=== PATIENT | male | born 1960 | race Caucasian/White ===

== ENCOUNTER 2017-10-31 17:59 | Emergency (ER) | payer OTHER ==
[~2017-10-31] VITALS: Ht 167.6 cm; Wt 81.2 kg
[~2017-10-31 17:59] MED LIST: FOSI20TA5 PO; HYDR50TA3 PO; OMEP40CA37 PO; SIMV10TA6 PO
[2017-10-31 18:01] VITALS: BP 118/57
[2017-10-31] MEDS ORDERED: IBUPROFEN 600 MG TABLET PO ONE ×2 (18:56→19:00)
[2017-10-31] MEDS ORDERED: TDAP [DIPH/PERTUSSIS/TET] 0.5 ML VIAL IM ONE ×2 (21:00→21:08)
--- NOTE | 2017-10-31 21:32 | NUR ---
PT LEFT BEFORE REC'ING DISK. PT REFUSED SPLINT. Cesar PAL, AGACNP- AWARE. Patient discharged to home in stable condition. Written and verbal after care instructions given. Patient verbalizes understanding of instruction. PT AMBULATED OUT WITH A STEADY GAIT. PT HAS FINDINGS AND WILL F/U WITH ORTHO.
== END 2017-10-31 21:33 | disposition home or self-care (01) ==
LOC: ER 18:07
DX: S82.152A Displaced fracture of left tibial tuberosity, initial encounter for closed fracture (principal); M70.52 Other bursitis of knee, left knee; L03.116 Cellulitis of left lower limb; E78.00 Pure hypercholesterolemia, unspecified; F17.200 Nicotine dependence, unspecified, uncomplicated; W18.39XA Other fall on same level, initial encounter; Y93.89 Activity, other specified; Y92.89 Other specified places as the place of occurrence of the external cause; Y99.8 Other external cause status
CPT/HCPCS: 73564-TC; 90715; 93971-TC; A4606; Z7610

== ENCOUNTER 2018-03-09 16:19 | Emergency (ER) | payer OTHER ==
[~2018-03-09] VITALS: Ht 167.6 cm; Wt 79.4 kg
[~2018-03-09 16:19] MED LIST changes: +FOSI20TA3 PO; -FOSI20TA5 PO
--- NOTE | 2018-03-09 17:20 | NUR ---
PT AMBULATORY TO ER BED 10 C/O RUE PAIN SINCE YESTERDAY. PT DENIES ANY RECENT TRAUMA. AFFECTED EXTREMITY APPEARS RED AND SWOLLEN. 10/10 PAIN. DENIES ANY OTHER COMPLAINT AT THIS TIME. AWAITING MD BRADSHAW.
--- NOTE | 2018-03-09 17:23 | NUR ---
HOA VICE PRESIDENT BIOSTATISTICS AT BEDSIDE FOR EVAL.
[2018-03-09] MEDS ORDERED: ONDANSETRON HCL/PF 4 MG/2 ML VIAL IV ONE (17:30)
[2018-03-09] MEDS ORDERED: HYDROMORPHONE 1 MG/1 ML DISP.SYRIN IV ONE (17:30)
[2018-03-09] MEDS ORDERED: ONDANSETRON HCL/PF 4 MG/2 ML VIAL ONE (17:41)
[2018-03-09] MEDS ORDERED: HYDROMORPHONE 1 MG/1 ML DISP.SYRIN ONE (17:41)
[2018-03-09 17:42] LABS: BASOPHILS # (AUTO) 0.1 /CMM (0.0-0.2); BASOPHILS % (AUTO) 1.2 % (0.0-2.0); EOSINOPHILS % (AUTO) 0.6 % (0.0-6.0); HEMATOCRIT 42 % (39-51); HEMOGLOBIN 13.5 g/dL (13.5-17.5); LYMPHOCYTES # (AUTO) 1.1 /CMM (0.8-4.8); LYMPHOCYTES % (AUTO) 12.1 % (20.0-44.0); MEAN CORPUSCULAR HEMOGLOBIN 26 PG (26.0-33.0); MEAN CORPUSCULAR HGB CONC 33 g/dl (31.0-36.0); MEAN CORPUSCULAR VOLUME 78 fL (80-96); MONOCYTES # (AUTO) 0.9 /CMM (0.1-1.30); MONOCYTES % (AUTO) 9.5 % (2.0-12.0); NEUTROPHILS # (AUTO) 7.3 /CMM (1.8-8.9); NEUTROPHILS % (AUTO) 76.6 % (43.0-81.0); PLATELET COUNT (AUTO) 302 /CMM (150-450); RDW COEFFICIENT OF VARIATION 15.3 (11.5-15.0); WHITE BLOOD COUNT (AUTO) 9.5 K/uL (4.3-11.0)
[2018-03-09 17:52] LABS: CALCIUM, SERUM 8.7 mg/dL (8.5-10.1); POTASSIUM 3.9 mmol/L (3.5-5.1)
[2018-03-09 18:20] LABS: C-REACTIVE PROTEIN 6.1 mg/dL (0.0-0.9)
[2018-03-09] MEDS ORDERED: KETOROLAC TROMETHAMINE INJ 30 MG/ML VIAL ONE (18:56)
[2018-03-09] MEDS ORDERED: KETOROLAC TROMETHAMINE INJ 30 MG/ML VIAL IV ONE (19:00)
--- NOTE | 2018-03-09 19:02 | NUR ---
REPORT TO RICHMOND SHEPHERD FOR NESS.
--- NOTE | 2018-03-09 19:18 | NUR ---
PT AA/OX4. VSS. NAD. STABLE CONDITION. SITTING UP TALKING ON CELL PHONE. WILL CONTINUE TO MONITOR.
--- NOTE | 2018-03-09 19:30 | NUR ---
CONNECTED DR KELLER TO HOA ÁLVAREZRAS CLIENT SERVICES DIRECTOR FOR ORTHO CONSULT
--- NOTE | 2018-03-09 19:59 | NUR ---
Note undone in EDM - 03/09/18 at 2000 by SHAE Patient does not wish to proceed with medical care recommended by ( ). Patient given information related to possible complications, up to and including , which could occur as a result of leaving the hospital at this time. Patient verbalizes understanding of risks involved due to leaving against medical advice. Patient has signed AMA form. Patient discharged to home in stable condition. Written and verbal after care instructions given. Patient verbalizes understanding of instruction. IV removed. Catheter intact and site benign. Pressure and 4x4 applied to site. No bleeding noted. AMBULATED WITH STABLE GAIT. INSTRUCTED NOT TO OPERATE OR DRIVE HEAVY MACHINERY
--- NOTE | 2018-03-09 20:00 | NUR ---
Patient does not wish to proceed with medical care recommended by SELVIN PAL. Patient given information related to possible complications, up to and including , which could occur as a result of leaving the hospital at this time. Patient verbalizes understanding of risks involved due to leaving against medical advice. Patient has signed AMA form. Patient discharged to home in stable condition. Written and verbal after care instructions given. Patient verbalizes understanding of instruction. IV removed. Catheter intact and site benign. Pressure and 4x4 applied to site. No bleeding noted. AMBULATED WITH STABLE GAIT. INSTRUCTED NOT TO OPERATE OR DRIVE HEAVY MACHINERY
[2018-03-09 20:01] VITALS: BP 152/72
== END 2018-03-09 20:02 | disposition left against medical advice (07) ==
LOC: ER 16:19
DX: M79.641 Pain in right hand (principal); M10.9 Gout, unspecified; I10 Essential (primary) hypertension; E78.00 Pure hypercholesterolemia, unspecified; F17.200 Nicotine dependence, unspecified, uncomplicated
CPT/HCPCS: 29105; 36415; 73130; 80048; 84550; 85025; 85652; 86140; 96374; 96375; 99285; 99406; A4606; J1170; J1885; J2405; Z7610

== ENCOUNTER 2018-06-22 11:47 | Inpatient (IN) | payer OTHER ==
[~2018-06-22] VITALS: Ht 167.6 cm; Wt 76.7 kg
[~2018-06-22 11:47] MED LIST changes: +FOSI20TA PO; -FOSI20TA3 PO
--- NOTE | 2018-06-22 12:05 | NUR ---
R KNEE PAIN AND SWELLING X 3 DAYS S/P SELF ARTHROCENTESIS. PT AAOX4, VSS. DENIES ANY OTHER DISCOMFORT @ THIS TIME. PT SEEN & EVAL'D BY KRISTIE AVELAR. WILL CONT TO MONITOR.
[2018-06-22] MEDS ORDERED: TETRACAINE/BENZOCAINE/BUTAMBEN 56 GM SPRAY TP ONE (12:30)
[2018-06-22] MEDS ORDERED: IV NS 0.9% 1,000 ML BAG IV ONE (13:00)
[2018-06-22] MEDS ORDERED: VANCOMYCIN 1 GM in IV D5W 250 ML IV ONE (13:00)
--- NOTE | 2018-06-22 13:33 | NUR ---
LT KNEE ABSCESS DRAINED BY KRISTIE AVELAR. PT JIE WELL.
[2018-06-22 13:36] LABS: BASOPHILS # (AUTO) 0.1 /CMM (0.0-0.2); BASOPHILS % (AUTO) 0.7 % (0.0-2.0); EOSINOPHILS % (AUTO) 0.5 % (0.0-6.0); HEMATOCRIT 42 % (39-51); HEMOGLOBIN 13.7 g/dL (13.5-17.5); LYMPHOCYTES # (AUTO) 1.5 /CMM (0.8-4.8); LYMPHOCYTES % (AUTO) 13.2 % (20.0-44.0); MEAN CORPUSCULAR HGB CONC 33 g/dl (31.0-36.0); MEAN CORPUSCULAR VOLUME 81 fL (80-96); MONOCYTES # (AUTO) 1.2 /CMM (0.1-1.30); MONOCYTES % (AUTO) 10.4 % (2.0-12.0); NEUTROPHILS # (AUTO) 8.5 /CMM (1.8-8.9); NEUTROPHILS % (AUTO) 75.2 % (43.0-81.0); PLATELET COUNT (AUTO) 312 /CMM (150-450); RED BLOOD CELL COUNT(AUTO) 5.14 MIL/uL (4.5-6.0); WHITE BLOOD COUNT (AUTO) 11.3 K/uL (4.3-11.0)
[2018-06-22 13:48] LABS: ALANINE AMINOTRANSFERASE 17 U/L (12-78); ALBUMIN 3.6 g/dL (3.4-5.0); ALKALINE PHOSPHATASE 94 U/L (46-116); ASPARTATE AMINOTRANSFERASE 11 U/L (15-37); BILIRUBIN,DIRECT 0.1 mg/dL (0.0-0.2); BILIRUBIN,TOTAL 0.3 mg/dL (0.2-1.0); CALCIUM, SERUM 8.7 mg/dL (8.5-10.1); CARBON DIOXIDE 28 mmol/L (21-32); CHLORIDE 97 mmol/L (98-107); CREATININE 1.2 mg/dL (0.6-1.3); GLUCOSE 105 mg/dL (74-106); POTASSIUM 4.1 mmol/L (3.5-5.1); SODIUM SERUM 134 mmol/L (136-145); TOTAL PROTEIN, SERUM 7.8 g/dL (6.4-8.2); UREA NITROGEN, BLOOD 11 mg/dL (7-18)
[2018-06-22 15:50] VITALS: BP 126/72
--- NOTE | 2018-06-22 15:51 | NUR ---
REPORT GIVEN TO JERALD SHEPHERD. PT TRANSFERED TO FLOOR. STABLE CONDITION.
--- NOTE | 2018-06-22 15:55 | NUR ---
MS ROTARY PUMP OPERATOR NOTE RECEIVED PT FROM ER VIA WHEELCHAIR. PT IS ALERT AND ORIENTED X4. DENIES N/V, CHEST PAIN, SOB. BREATHING IS EVEN AND UNLABORED ON ROOM AIR. VS WNL. PT RATES PAIN 5/10 IN THE BILATERAL KNEES. R AC #20G IV IS PATENT, CLEAN, DRY AND INTACT. ALL BELONGINGS ACCOUNTED FOR AND BELONGINGS LIST LIST SIGNED AND PLACED IN CHART. PT HAS CIGARETTES AND CUSTOMER LOGISTICS MANAGER, ALLOWED NURSE TO TAKE BOTH AND PLACE AT THE NURSING STATION. WOUND DOCUMENTATION COMPLETED PER PROTOCOL. HOME MEDICATION RECONCILED. AWAITING ADMISSION ORDERS FROM DR. MATOS. PT IS REQUESTING WATER AND TO GO OUTSIDE AND SMOKE. PT STATED "IT IS VERY IMPORTANT THAT I CAN, I SMOKE 3 PACKS A DAY I NEED TO SMOKE I ALMOST LEFT IN THE ER BECAUSE I COULDN'T SMOKE". THE NURSE INFORMED THE PT THAT THEY WILL LET THE DOCTOR KNOW, BUT FOR NOW THE PT CANNOT GO OUTSIDE TO SMOKE. PT VERBALIZED AGREEMENT.
[2018-06-22 16:30] VITALS: BP 126/72
[2018-06-22] MEDS ORDERED: Z GUARD REMEDY 2 OZ OINT TP PRN (17:00)
[2018-06-22] MEDS ORDERED: ONDANSETRON HCL/PF 4 MG/2 ML VIAL IVP PRN (17:00)
[2018-06-22] MEDS ORDERED: MAG HYDROX/AL HYDROX/SIMETH 30 ML UDC PO PRN (17:00)
[2018-06-22] MEDS ORDERED: ACETAMINOPHEN 325 MG TABLET PO PRN (17:00)
[2018-06-22] MEDS ORDERED: MAGNESIUM HYDROXIDE 30 ML UDC PO PRN (17:00)
--- NOTE | 2018-06-22 17:30 | NUR ---
MS RN SMOKE BREAK PT WENT OUTSIDE WITH MILLER HEAD FOR SMOKE BREAK AND BROUGHT BACK TO ROOM IN STABLE CONDITION. ALL NEEDS ATTENDED TO, WILL CONTINUE TO MONITOR.
[2018-06-22] MEDS ORDERED: FEE PK DOSING 1 MIN EA MC ONE (17:31)
--- NOTE | 2018-06-22 18:40 | NUR ---
MS RN NICOTINE PATCH PT REQUESTING NICOTINE PATCH IN ADDITION TO SMOKE BREAKS. PER PT "I AM HIGHLY ADDICTED TO SMOKING AND GET REALLY ANXIOUS". RECEIVED ORDERS FROM DR. MATOS, WILL IMPLEMENT ORDERS.
--- NOTE | 2018-06-22 19:03 | NUR ---
MS RN CLOSING NOTE PT IN BED, ALERT AND ORIENTED X4. DENIES N/V, CHEST PAIN, SOB. BREATHING IS EVEN AND UNLABORED ON ROOM AIR. R AC #20G IV IS SALINE LOCKED WITHOUT REDNESS OR SWELLING. ALL NEEDS ATTENDED TO. BED IS LOCKED AND IN LOWEST POSITION, SIDE RAILS UP X2, CALL LIGHT WITHIN REACH. WILL ENDORSE TO AIR BREAKER OPERATOR RN FOR CONTINUITY OF CARE.
[2018-06-22] MEDS: PIPERACILLIN /TAZOBACTAM 3.375 G in IV D5W 100 ML IV SCH (19:47)
[2018-06-22] MEDS: NICOTINE PATCH (21MG) 21 MG PATCH.TD24 TD SCH (19:47)
[2018-06-22 20:05] VITALS: BP 108/59
[2018-06-22 20:33] VITALS: BP 108/59
--- NOTE | 2018-06-22 20:54 | NUR ---
ALERT AND ORIENTATED. SMILING AND IN GOOD SPIRITS. RIGHT KNEE DEEP PINK IN COLOR AND WARM TO TOUCH SWOLLEN NOTED AMBULATES TO THE BATHROOM NO INDICATION OF PAIN
[2018-06-22] MEDS: ZOLPIDEM TARTRATE 5 MG TABLET PO PRN (22:55)
--- NOTE | 2018-06-23 00:49 | NUR ---
ENDING NOTES: AMBIEN GIVEN AND EFFECTIVE. DENIES PAIN SEEN AMBULATING TO ANF FRO THE BATHRROM NO INDICATION OF KNEE DISCOFORT. HE IS PLEASENT AND COOPERATIVE
--- NOTE | 2018-06-23 01:00 | NUR ---
RN NOTES RECEIVED PT ASLEEP, ON ROOM AIR AND TOLERATED WELL. NO SIGNS OF DISTRESS AND DISCOMFORT NOTED.IV ACCESS LEFT AC PATENT AND INTACT. KEPT COMFORTABLE AND ATTENDED. WILL CONTINUE TO MONITOR PATIENT.
[2018-06-23] MEDS: VANCOMYCIN 1 GM in IV D5W 250 ML IV SCH ×2 (02:14→14:25)
[2018-06-23 04:00] VITALS: BP 112/69
[2018-06-23] MEDS: PIPERACILLIN /TAZOBACTAM 3.375 G in IV D5W 100 ML IV SCH ×3 (04:36→23:00)
--- NOTE | 2018-06-23 06:46 | NUR ---
RN NOTES PATIENT SLEPT WELL OVERNIGHT, VITAL SIGNS STABLE, AFEBRILE. DENIES PAIN, NAUSEA AND VOMITING. NO SIGNS OF DISTRESS AND DISCOMFORT NOTED. ALL DUE MEDS GIVEN. ALL NEEDS MET. WILL CONTINUE TO MONITOR.
--- NOTE | 2018-06-23 07:15 | NUR ---
RN OPENING NOTES RECEIVED PATIENT IN BED RESTING. A/OX4, ABLE TO MAKE NEEDS KNOWN. NO ACUTE DISTRESS, NO SOB. DENIED PAIN OR DISCOMFORT AT THE MOMENT. IV ACCESS INTACT AND PATENT. KEPT PATIENT SAFE AND COMFORTABLE. DISCUSSED POC. BED IN LOW/LOCKED POSITION, SIDERAILS UP X2, CALL LIGHT IN REACH. WILL CONTINUE TO MONIOTR ACCORDINGLY.
[2018-06-23 07:27] LABS: BASOPHILS # (AUTO) 0.1 /CMM (0.0-0.2); BASOPHILS % (AUTO) 0.6 % (0.0-2.0); EOSINOPHILS % (AUTO) 0.8 % (0.0-6.0); HEMATOCRIT 39 % (39-51); HEMOGLOBIN 12.7 g/dL (13.5-17.5); LYMPHOCYTES # (AUTO) 0.9 /CMM (0.8-4.8); LYMPHOCYTES % (AUTO) 10.2 % (20.0-44.0); MEAN CORPUSCULAR HGB CONC 33 g/dl (31.0-36.0); MEAN CORPUSCULAR VOLUME 80 fL (80-96); MONOCYTES # (AUTO) 0.9 /CMM (0.1-1.30); MONOCYTES % (AUTO) 10.5 % (2.0-12.0); NEUTROPHILS # (AUTO) 6.6 /CMM (1.8-8.9); NEUTROPHILS % (AUTO) 77.9 % (43.0-81.0); PLATELET COUNT (AUTO) 269 /CMM (150-450); RED BLOOD CELL COUNT(AUTO) 4.84 MIL/uL (4.5-6.0); WHITE BLOOD COUNT (AUTO) 8.4 K/uL (4.3-11.0)
[2018-06-23 07:40] LABS: CALCIUM, SERUM 7.4 mg/dL (8.5-10.1); CREATININE 1.1 mg/dL (0.6-1.3); MAGNESIUM 1.7 mg/dL (1.8-2.4); POTASSIUM 3.9 mmol/L (3.5-5.1)
[2018-06-23 08:00] VITALS: BP 111/69
[2018-06-23] MEDS: NICOTINE PATCH (21MG) 21 MG PATCH.TD24 TD SCH (08:15)
[2018-06-23] MEDS: Magnesium 1GM/D5W 100ML PREMIX 100 ML IV SCH ×2 (11:45→12:47)
--- NOTE | 2018-06-23 14:15 | NUR ---
NOTIFIED MEDRECON TO DR MATOS.
[2018-06-23 16:00] VITALS: BP 129/78
--- NOTE | 2018-06-23 18:00 | NUR ---
IV ACCESS LEFT AC NOT PATENT, REMOVED APPLIED PRESSURE, NO BLEEDING. INSERTED NEW IV ACCESS ON LEFT FOREARM GAUGE 22, INTACT AND PATENT.
--- NOTE | 2018-06-23 18:15 | NUR ---
Met with patient, he lives at home with spouse. States he is ambulatory and independent with adl's. Has no DME and homehealth reported. He plan to return home once discharge. Addendum: 06/23/18 at 1815 by RANDY BURNHAM RN Amended: Links added.
[2018-06-23] MEDS: LACTOBACILLUS RHAMNOSUS GG 1 EACH CAP.SPRINK PO SCH (18:40)
--- NOTE | 2018-06-23 19:31 | NUR ---
RN CLOSING NOTES PATIENT IN STABLE CONDITION. ALL NEEDS ATTENDED AND PROVIDED. ALL DUE MEDICATIONS ADMINISTERED ORDERED. KEPT PATIENT SAFE AND COMFORTABLE. BED IN LOW/LOCKED POSITION, SIDERAILS UPX2, CALL LIGHT IN REACH. ENDORSED TO NIGHT RN FOR NESS.
[2018-06-23 20:00] VITALS: BP 123/72
--- NOTE | 2018-06-23 20:00 | NUR ---
OUTSIDE SALES REPRESENTATIVE INSURANCE NOTE: PATIENT RESTING IN BED, NO ACUTE DISTRESS NOTED. BREATHING EVEN AND UNLABORED, NO SOB NOTED. IV TO LFA IN PLACE. BED LOCKED AND IN LOWEST POSITION, CALL LIGHT IN REACH. WILL CONTINUE TO MONITOR.
[2018-06-23] MEDS: HYDROCODONE/APAP 5/325MG 1 EACH TABLET PO PRN (21:11)
--- NOTE | 2018-06-23 21:15 | NUR ---
MS RN NOTE: PATIENT COMPLAINS OF PAIN TO BOTH KNEE 01/17, NORCO 5/325MG 1 TAB ORAL GIVEN PER MD ORDER. WILL CONTINUE TO MONITOR.
[2018-06-23 21:36] LABS: APPEARANCE,URINE CLEAR (CLEAR); BILIRUBIN,URINE NEGATIVE (NEGATIVE); BLOOD, URINE 2+ Ery/uL (NEGATIVE); COLOR,URINE YELLOW (YELLOW); KETONES,URINE NEGATIVE (NEGATIVE); LEUKOCYTE ESTERASE ,URINE NEGATIVE (NEGATIVE); NITRITE, URINE NEGATIVE (NEGATIVE); PH,URINE 6.5 (5.0-8.0); PROTEIN,URINE NEGATIVE (NEGATIVE); UGLUCOSE NEGATIVE (NEGATIVE); UROBILINOGEN,URINE 0.2 EU/dL (0.2)
[2018-06-23 21:52] LABS: BACTERIA,URINE Rare /HPF (None Seen); RBC,URINE 21-50 /HPF (0-2); SQUAMOUS EPITHELIAL CELL,UR None Seen /HPF (None Seen); WBC,URINE NONE SEEN /HPF (0-3)
[2018-06-24] MEDS: ZOLPIDEM TARTRATE 5 MG TABLET PO PRN (01:31)
--- NOTE | 2018-06-24 01:45 | NUR ---
MS RN NOTE: PATIENT COMPLAINS UNABLE TO SLEEP AND REQUESTING SLEEPING MEDICATIONS. AMBIEN 5MG 1 TAB ORAL GIVEN PER MD ORDER. WILL CONTINUE TO MONITOR.
[2018-06-24] MEDS: VANCOMYCIN 1 GM in IV D5W 250 ML IV SCH (02:45)
[2018-06-24] MEDS: PIPERACILLIN /TAZOBACTAM 3.375 G in IV D5W 100 ML IV SCH ×2 (06:22→12:00)
--- NOTE | 2018-06-24 06:45 | NUR ---
MS RN NOTE: PATIENT RESTING IN BED, NO ACUTE DISTRESS NOTED. BREATHING EVEN AND UNLABORED, NO SOB NOTED. IV TO LFA IN PLACE. BED LOCKED AND IN LOWEST POSITION, CALL LIGHT IN REACH. WILL ENDORSE TO DAY NURSE TO CONTINUE WITH PLAN OF CARE.
[2018-06-24 07:49] LABS: BASOPHILS # (AUTO) 0.1 /CMM (0.0-0.2); BASOPHILS % (AUTO) 1.1 % (0.0-2.0); EOSINOPHILS % (AUTO) 3.4 % (0.0-6.0); HEMATOCRIT 40 % (39-51); HEMOGLOBIN 12.9 g/dL (13.5-17.5); LYMPHOCYTES # (AUTO) 1.1 /CMM (0.8-4.8); LYMPHOCYTES % (AUTO) 21.1 % (20.0-44.0); MEAN CORPUSCULAR HGB CONC 33 g/dl (31.0-36.0); MEAN CORPUSCULAR VOLUME 81 fL (80-96); MONOCYTES # (AUTO) 0.7 /CMM (0.1-1.30); MONOCYTES % (AUTO) 13.8 % (2.0-12.0); NEUTROPHILS # (AUTO) 3.2 /CMM (1.8-8.9); NEUTROPHILS % (AUTO) 60.6 % (43.0-81.0); PLATELET COUNT (AUTO) 280 /CMM (150-450); RED BLOOD CELL COUNT(AUTO) 4.89 MIL/uL (4.5-6.0); WHITE BLOOD COUNT (AUTO) 5.3 K/uL (4.3-11.0)
[2018-06-24 08:00] VITALS: BP 107/74
[2018-06-24 08:07] LABS: CALCIUM, SERUM 8.5 mg/dL (8.5-10.1); CREATININE 0.9 mg/dL (0.6-1.3); MAGNESIUM 1.9 mg/dL (1.8-2.4); POTASSIUM 4.2 mmol/L (3.5-5.1)
[2018-06-24] MEDS: NICOTINE PATCH (21MG) 21 MG PATCH.TD24 TD SCH (08:18)
[2018-06-24] MEDS: LACTOBACILLUS RHAMNOSUS GG 1 EACH CAP.SPRINK PO SCH (08:18)
--- NOTE | 2018-06-24 08:20 | NUR ---
MS RN INITIAL NOTES Patient is sitting up in bed, had breakfast with good appetite. Stable on RA, denies SOB. Patient voicing wants to go home today early, will follow with MD. Due meds given, nicotine patch applied to left shoulder. Left knee incision site no dressing in place, no drainage noted, post I&D abscess 06/22/18. Call light within reach. Will cont to monitor.
--- NOTE | 2018-06-24 08:34 | NUR ---
Nicotine patch in place-left shoulder. Patient wants to smoke, educated on smoking cessation, risk, benefits of cessation aide, patient with angry behavior, started yelling to nurses. Patient signed smoking consent, nicotine patch removed. Notified Dr. Jimenez, awaiting call back.
[2018-06-24] MEDS ORDERED: NICOTINE PATCH (21MG) 21 MG PATCH.TD24 TD ONE (09:30)
[2018-06-24] MEDS: HYDROCODONE/APAP 5/325MG 1 EACH TABLET PO PRN (10:08)
[2018-06-24] MEDS ORDERED: CLIN300C11 PO (11:44)
[2018-06-24] MEDS ORDERED: HYDR-4384 PO (11:44)
--- NOTE | 2018-06-24 12:28 | NUR ---
MS RN DISCHARGED Patient has been cleared for discharge home by . VSS, Left knee pain managed by DARYL Cristina. Ambulating independently. Left knee, no drainage. Discharge instruction given to patient, new prescription explained to patient, instructed to follow up with Primary care physician in 1 week, verbalized understanding. Belongings check and send with the patient upon DC. Patient left hosp in stable condition via private car.
== END 2018-06-24 12:30 | disposition home or self-care (01) | DRG 383 ==
LOC: ER 11:50 → MED 14:42
PROVIDERS: ADMIT Student in an Organized Health Care Education/Training Program; ATTEND Student in an Organized Health Care Education/Training Program
PROC: 0S9D3ZZ Drainage of Left Knee Joint, Percutaneous Approach (ICD-10-PCS; principal; 2018-06-22)
DX: L03.116 Cellulitis of left lower limb (principal); E83.42 Hypomagnesemia; M70.52 Other bursitis of knee, left knee; E87.1 Hypo-osmolality and hyponatremia; E78.5 Hyperlipidemia, unspecified; I10 Essential (primary) hypertension; F17.210 Nicotine dependence, cigarettes, uncomplicated; E78.00 Pure hypercholesterolemia, unspecified
CPT/HCPCS: 36415; 71045-TC; 80048-TC; 80061-TC; 80076-TC; 80202-TC; 81000-TC; 83605-TC; 83735-TC; 84100-TC; 84484-TC; 85025-TC; 85730-TC; 87040-TC; 87070-TC; 87081-TC; 87086-TC; A4606; A6403; A6407; G0378; J2543; J3370; J3475; J7030; J7060; Z7610

== ENCOUNTER 2018-07-15 07:48 | Emergency (ER) | payer OTHER ==
[~2018-07-15] VITALS: Ht 167.6 cm; Wt 76.7 kg
[~2018-07-15 07:48] MED LIST changes: +CLIN300C11 PO; +HYDR-4384 PO; -SIMV10TA6 PO
[2018-07-15 07:51] VITALS: BP 143/69
--- NOTE | 2018-07-15 08:01 | NUR ---
PT BIB.SELF, COMPLAINING OF RIGHT INDEX FINGER PAIN, PT SEEN BY MD. CAVAZOS WNL. BRIEFED ON POC.
--- NOTE | 2018-07-15 08:09 | NUR ---
XR AT BEDSIDE.
--- NOTE | 2018-07-15 08:12 | NUR ---
VERBAL D/C GIVEN BY
== END 2018-07-15 08:16 | disposition home or self-care (01) ==
LOC: ER 07:50
DX: M79.644 Pain in right finger(s) (principal); E78.00 Pure hypercholesterolemia, unspecified; F17.200 Nicotine dependence, unspecified, uncomplicated
CPT/HCPCS: 73140-TC

== ENCOUNTER 2018-09-23 17:28 | Emergency (ER) | payer OTHER ==
[~2018-09-23] VITALS: Ht 167.6 cm; Wt 77.1 kg
--- NOTE | 2018-09-23 17:28 | NUR ---
PT ON & OFF ABDOMINAL PAIN AND NAUSEA X 2 WEEKS, PT IS AAOX4, NOT IN RESPIRATORY DISTRESS, V/S STABLE, KEPT RESTED AND COMFORTABLE, HOOKED TO MONITOR, KEPT RESTED AND COMFORTABLE.
--- NOTE | 2018-09-23 17:45 | NUR ---
URINE SPECIMEN COLLECTED AND SENT TO LAB.
[2018-09-23] MEDS ORDERED: ONDANSETRON HCL/PF 4 MG/2 ML VIAL ONE (18:13)
[2018-09-23] MEDS ORDERED: MORPHINE SULFATE INJ 4 MG/ML DISP.SYRIN ONE (18:13)
--- NOTE | 2018-09-23 18:15 | NUR ---
IV LINE ESTABLISHE, LABS DRAWNED AND SENT TO LAB.
[2018-09-23 18:23] LABS: BASOPHILS # (AUTO) 0.1 /CMM (0.0-0.2); BASOPHILS % (AUTO) 0.8 % (0.0-2.0); EOSINOPHILS % (AUTO) 0.7 % (0.0-6.0); HEMATOCRIT 38 % (39-51); HEMOGLOBIN 12.8 g/dL (13.5-17.5); MEAN CORPUSCULAR HGB CONC 34 g/dl (31.0-36.0); MEAN CORPUSCULAR VOLUME 80 fL (80-96); MONOCYTES # (AUTO) 0.6 /CMM (0.1-1.30); MONOCYTES % (AUTO) 6.7 % (2.0-12.0); NEUTROPHILS # (AUTO) 6.9 /CMM (1.8-8.9); NEUTROPHILS % (AUTO) 79.8 % (43.0-81.0); PLATELET COUNT (AUTO) 238 /CMM (150-450); RED BLOOD CELL COUNT(AUTO) 4.76 MIL/uL (4.5-6.0); WHITE BLOOD COUNT (AUTO) 8.6 K/uL (4.3-11.0)
[2018-09-23 18:25] LABS: APPEARANCE,URINE Clear (CLEAR); BILIRUBIN,URINE Negative (NEGATIVE); BLOOD, URINE Negative Ery/uL (NEGATIVE); COLOR,URINE Yellow (YELLOW); KETONES,URINE Negative (NEGATIVE); LEUKOCYTE ESTERASE ,URINE Negative (NEGATIVE); NITRITE, URINE Negative (NEGATIVE); PROTEIN,URINE Negative (NEGATIVE); UGLUCOSE Negative (NEGATIVE); UROBILINOGEN,URINE 0.2 EU/dL (0.2)
[2018-09-23] MEDS ORDERED: CT SWABBABLE VALVE TRANS SET 1 EA INFUS.SET MC ONE (18:25)
[2018-09-23] MEDS ORDERED: IOHEXOL-300 100 ML VIAL IV ONE (18:25)
[2018-09-23] MEDS ORDERED: IV NS 0.9% 250 ML IV ONE (18:26)
[2018-09-23] MEDS ORDERED: ONDANSETRON HCL/PF 4 MG/2 ML VIAL IVP ONE (18:30)
[2018-09-23] MEDS ORDERED: IV NS 0.9% 1,000 ML BAG IV ONE (18:30)
[2018-09-23] MEDS ORDERED: NICOTINE PATCH (21MG) 21 MG PATCH.TD24 TD ONE (18:30)
[2018-09-23] MEDS ORDERED: MORPHINE SULFATE INJ 2 MG/ML DISP.SYRIN IV ONE (18:30)
[2018-09-23 18:33] LABS: CALCIUM, SERUM 8.9 mg/dL (8.5-10.1); POTASSIUM 3.9 mmol/L (3.5-5.1)
[2018-09-23 18:45] LABS: ALBUMIN 3.8 g/dL (3.4-5.0); BILIRUBIN,DIRECT 0.1 mg/dL (0.0-0.2); BILIRUBIN,TOTAL 0.2 mg/dL (0.2-1.0); TOTAL PROTEIN, SERUM 7.3 g/dL (6.4-8.2)
--- NOTE | 2018-09-23 18:50 | NUR ---
PT IS WHEELED TO CT SCAN VIA [facility].
--- NOTE | 2018-09-23 19:21 | NUR ---
REPORT GIVEN TO CORA LESLIE FOR NESS.
--- NOTE | 2018-09-23 19:21 | NUR ---
RECEIVED REPORT FROM RANDELL SHEPHERD FOR NESS
--- NOTE | 2018-09-23 20:17 | NUR ---
Patient discharged to home in stable condition. Written and verbal after care instructions given. Patient verbalizes understanding of instruction. IV removed. Catheter intact and site benign. Pressure and 4x4 applied to site. No bleeding noted. Pt ambulatory with a steady gait
[2018-09-23 20:19] VITALS: BP 154/77
== END 2018-09-23 20:20 | disposition home or self-care (01) ==
LOC: ER 17:29
DX: K59.00 Constipation, unspecified (principal); E78.00 Pure hypercholesterolemia, unspecified; F17.200 Nicotine dependence, unspecified, uncomplicated; Z79.899 Other long term (current) drug therapy
CPT/HCPCS: 36415; 71045; 74177; 80048; 80076; 81001; 83690; 85025; 85730; 96374; 96375; 99284; 99406; A4606; J2270; J2405; J7030; J7050; Q9967; 81000-TC

== ENCOUNTER 2020-06-28 08:24 | Emergency (ER) | payer OTHER ==
[~2020-06-28] VITALS: Ht 167.6 cm; Wt 76.7 kg
[~2020-06-28 08:24] MED LIST changes: +OMEP40CA13 PO; -OMEP40CA37 PO
[2020-06-28 08:43] VITALS: BP 112/100
--- NOTE | 2020-06-28 09:25 | NUR ---
Avery espinal in ED - 06/30/20 at 1100 by TILA covid 19 swab collected and sent to lab
--- NOTE | 2020-06-28 09:29 | NUR ---
Patient discharged to home in stable condition. Written and verbal after care instructions given. Patient verbalizes understanding of instruction.
== END 2020-06-28 09:29 | disposition home or self-care (01) ==
LOC: ER 08:28
DX: M54.17 Radiculopathy, lumbosacral region (principal); E78.00 Pure hypercholesterolemia, unspecified; Z79.899 Other long term (current) drug therapy

== ENCOUNTER 2020-08-09 13:00 | Emergency (ER) | payer OTHER ==
[~2020-08-09] VITALS: Ht 167.6 cm; Wt 76.7 kg
[~2020-08-09 13:00] MED LIST changes: -CLIN300C11 PO; +CLIN300C12 PO; -HYDR50TA3 PO; +HYDR50TA4 PO
[2020-08-09 13:20] VITALS: BP 165/79
--- NOTE | 2020-08-09 14:11 | NUR ---
AT BEDSIDE FOR EVAL.
--- NOTE | 2020-08-09 14:53 | NUR ---
Patient discharged to home in stable condition. Written and verbal after care instructions given. Patient verbalizes understanding of instruction.
[2020-08-09] MEDS ORDERED: ACETAMINOPHEN 325 MG TABLET PO ONE (15:00)
== END 2020-08-09 14:53 | disposition home or self-care (01) ==
LOC: ER 13:06
DX: H93.13 Tinnitus, bilateral (principal); I10 Essential (primary) hypertension; E78.5 Hyperlipidemia, unspecified; K21.9 Gastro-esophageal reflux disease without esophagitis; G89.29 Other chronic pain; M54.5 Low back pain; F17.200 Nicotine dependence, unspecified, uncomplicated; Z79.899 Other long term (current) drug therapy